=== PATIENT | male | born 1980 | race Caucasian/White ===

== ENCOUNTER 2017-12-28 07:54 | Emergency (ER) | payer BC ==
[~2017-12-28] VITALS: Ht 177.8 cm; Wt 104.3 kg
[2017-12-28] MEDS ORDERED: DIPHTH/TETANUS/ACEL. PERTUSSIS 0.5 ML SYR IM ONE (08:30)
[2017-12-28] MEDS ORDERED: FLUORESCEIN SOD(OPTH) 1 MG STRP OP ONE (08:30)
[2017-12-28] MEDS ORDERED: PROPARACAINE HCL 0.5% OP SOLN 15 ML BTL OP ONE (08:30)
[2017-12-28 08:48] VITALS: BP 146/82
== END 2017-12-28 08:45 | disposition home or self-care (01) ==
LOC: FSED 07:54
DX: S05.01XA Injury of conjunctiva and corneal abrasion without foreign body, right eye, initial encounter (principal); S00.81XA Abrasion of other part of head, initial encounter; F17.210 Nicotine dependence, cigarettes, uncomplicated
CPT/HCPCS: 99283